=== PATIENT | female | born 1965 | race American Indian/Alaskan Native ===

== ENCOUNTER 2017-03-16 17:32 | Emergency (ER) | payer MEDICAID, OTHER ==
[2017-03-16 17:47] VITALS: BP 125/63; PULSE 93; RESP 18; TEMP 97.6; O2SAT 99
[2017-03-16] MEDS ORDERED: Clindamycin 600 MG in Sodium Chloride 0.9% 100 ML IVPB ONE (17:57)
--- NOTE | 2017-03-16 18:50 | ED PDOC ---
Lower Extremity Pain/Injury Time Seen by Provider: 03/16/17 17:51 Chief Complaint (Nursing): Lower Extremity Problem/Injury Chief Complaint (Provider): Left knee injury History Per: Patient History/Exam Limitations: no limitations Onset/Duration Of Symptoms: Days (5) Current Symptoms Are (Timing): Still Present Severity: Moderate Additional Complaint(s): Juliane Rothman is a 51 y/o female presenting to the ER on 03/16/2017 with an injury to her left knee. Patient reports she tripped and fell five days ago and sustained an abrasion to her knee. Patient states the knee has become swollen and has an associated beige drainage. She denies any fever but continues to experience pain and swelling, prompting her to seek medical evaluation. Patient is also complaining of right hip pain. Past Medical History Reviewed: Historical Data, Nursing Documentation, Vital Signs Vital Signs: Last Vital Signs Temp 97.6 F 03/16/17 17:41 Pulse 93 H 03/16/17 17:41 Resp 18 03/16/17 17:41 BP 125/63 03/16/17 17:41 Pulse Ox 99 03/16/17 17:41 - Medical History PMH: HTN - Surgical History Surgical History: No Surg Hx - Family History Family History: States: Unknown Family Hx - Social History Current smoker - smoking cessation education provided: No Alcohol: None Drugs: Denies - Home Medications Home Medications: Ambulatory Orders Medication Instructions Recorded Clindamycin [Cleocin] 300 mg PO TID #30 cap 03/16/17 Naproxen [Naprosyn] 500 mg PO Q12H #20 tab 03/16/17 - Allergies Allergies/Adverse Reactions: Allergies Allergy/AdvReac Type Severity Reaction Status Date / Time No Known Allergies Allergy Verified 03/16/17 17:41 Review of Systems ROS Statement: Except As Marked, All Systems Reviewed And Found Negative Constitutional: Negative for: Fever Musculoskeletal: Positive for: Leg Pain ((+) left knee ), Other ((+) right hip ) Physical Exam - Reviewed Nursing Documentation Reviewed: Yes Vital Signs Reviewed: Yes - Physical Exam Appears: Positive for: Non-toxic, No Acute Distress Head Exam: Positive for: ATRAUMATIC, NORMOCEPHALIC Skin: Positive for: Normal Color. Negative for: Rash Eye Exam: Positive for: Normal appearance, EOMI, PERRL Neck: Positive for: Normal, Painless ROM, Supple Cardiovascular/Chest: Positive for: Regular Rate, Rhythm. Negative for: Murmur Respiratory: Positive for: Normal Breath Sounds. Negative for: Respiratory Distress Extremity: Positive for: Normal ROM (full ROM of right hip and left knee ), Tenderness, Swelling, Other ((+) left knee- 2 cm ulcer with beige discharge and surrounding swelling and tenderness; (+) right hip tenderness w/ no deformity). Negative for: Deformity Neurologic/Psych: Positive for: Alert, Oriented. Negative for: Motor/Sensory Deficits - Laboratory Results Result Diagrams: 03/16/17 18:40 03/16/17 18:40 - ECG O2 Sat by Pulse Oximetry: 99 Medical Decision Making Medical Decision Makin:51 Initial Impression- 51 y/o female with ulcer to left knee and right hip pain Initial Plan- * VBG Shock Panel * CMP * Urine Dip * CBC w/ differential * XR Left Knee * Clindamycin IVPB * Toradol 30 mg IVP * XR Right Hip * US Duplex lower extremity * Re-eval Documented by Imani Rivero, acting as a scribe for Chris Kwong MD. All medical record entries made by the Scribe were at my direction and personally dictated by me. I have reviewed the chart and agree that the record accurately reflects my personal performance of the history, physical exam, medical decision making, and the department course for this patient. I have also personally directed, reviewed, and agree with the discharge instructions and disposition. Disposition - Clinical Impression Clinical Impression: Cellulitis - Patient ED Disposition Is Patient to be Admitted: No Counseled Patient/Family Regarding: Studies Performed, Diagnosis, Need For Followup, Rx Given - Disposition Referrals: Jailene Bolden MD [Staff Provider] - Disposition: Routine/Home Disposition Time: 21:43 Condition: FAIR Prescriptions: Clindamycin [Cleocin] 300 mg PO TID #30 cap Naproxen [Naprosyn] 500 mg PO Q12H #20 tab Instructions: Cellulitis (ED)
[2017-03-16 18:58] LABS: BASO % 0.6 % (0.0-2.0); EOS # 0.3 K/uL (0.0-0.7); EOS % 3.7 % (0.0-4.0); HEMATOCRIT 43.4 % (34.0-47.0); LYMPH % 25.4 % (20.0-40.0); MEAN CELL VOLUME 92.1 fl (81.0-99.0); MEAN CORPUSCULAR HEMOGLOBIN 31.1 pg (27.0-31.0); MEAN CORPUSCULAR HGB CONC 33.7 g/dL (33.0-37.0); MEAN PLATELET VOLUME 9.4 fl (7.2-11.7); MONO # 0.5 K/uL (0.0-0.8); MONO % 6.5 % (0.0-10.0); NEUT # 5.1 K/uL (1.8-7.0); NEUT % 63.8 % (50.0-75.0); NRBC % 0.1 % (0.0-0.0); RED CELL DISTRIBUTION WIDTH 13.3 % (11.5-14.5)
[2017-03-16 19:06] LABS: VENOUS BLOOD GAS BASE EXCESS 0.7 mmol/L (0.0-2.0); VENOUS BLOOD GAS PCO2 40 mmHg (40-60); VENOUS BLOOD PH 7.41 (7.32-7.43)
[2017-03-16 19:11] LABS: ALKALINE PHOSPHATASE 114 U/L (38-126); ALT/SGPT 37 U/L (9-52); AST/SGOT 34 U/L (14-36); BILIRUBIN,TOTAL 0.7 mg/dl (0.2-1.3); BLOOD UREA NITROGEN 21 mg/dl (7-17); CALCIUM 10.1 mg/dL (8.4-10.2); CARBON DIOXIDE 24 mmol/L (22-30); CHLORIDE 107 mmol/L (98-107); GFR AFRICAN-AMERICAN > 60; GLUCOSE,RANDOM 89 mg/dL (65-105); SODIUM 140 mmol/l (132-148); TOTAL PROTEIN 9.9 G/DL (6.3-8.2)
[2017-03-16 19:12] LABS: POTASSIUM 4.3 MMOL/L (3.6-5.0)
--- NOTE | 2017-03-16 21:14 | US ---
EXAM: US Duplex Left Lower Extremity Veins CLINICAL HISTORY: 51 years old, female; Signs and symptoms; Swelling of limb; Lower extremity, left TECHNIQUE: Real-time ultrasound scan of the veins of the left lower extremity with color Doppler flow, spectral waveform analysis and compression. EXAM DATE/TIME: 03/16/2017 6:27 PM COMPARISON: There are no prior studies for comparison. FINDINGS: Deep veins: Common femoral, superficial femoral, popliteal and posterior tibial veins were evaluated. All veins examined are compressible. There are no intraluminal filling defects. There is expected blood flow on Doppler imaging. There is change in waveform with augmentation. Impression: No deep venous thrombosis in the visualized vascular segments of the left lower extremity
[2017-03-16] MEDS ORDERED: TDAP Vaccine 0.5 mL Syr IM ONE (21:47)
--- NOTE | 2017-03-17 12:08 | RAD ---
PROCEDURE: Left Knee Radiographs. HISTORY: COMPARISON: None available FINDINGS: BONES: No acute displaced fracture. JOINTS: No dislocation. JOINT EFFUSION: No significant joint effusion. OTHER FINDINGS: None. IMPRESSION: No acute displaced fracture, dislocation, or significant joint effusion identified. If symptoms persist, or if there is continued clinical concern, x-ray follow-up in 7-10 days should be considered.
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
== END 2017-03-16 22:48 | disposition home or self-care (01) ==
LOC: H.ER 17:32
DX: L03.116 Cellulitis of left lower limb (principal); I10 Essential (primary) hypertension

== ENCOUNTER 2017-12-19 12:01 | Inpatient (IN) | payer MEDICAID, OTHER ==
[2017-12-19] MEDS ORDERED: Sodium Chloride 0.9% 1,000 ML IV STA (12:46)
--- NOTE | 2017-12-19 12:49 | ED PDOC ---
HPI: Back Time Seen by Provider: 12/19/17 12:46 Chief Complaint (Nursing): Back Pain Chief Complaint (Provider): left side flank pain History Per: Patient (52 y/o female here with intermittent waxing and waning left side flank pain x 3 days. Denies any associated with urinary discomfort/ vomiting/fevers/chills. Has h/o bulging discs but unsure if related to discomfort. Notes pain worse with movement.) Past Medical History Reviewed: Historical Data, Nursing Documentation, Vital Signs Vital Signs: Last Vital Signs Temp 98.4 F 12/19/17 12:32 Pulse 115 H 12/19/17 12:32 Resp 20 12/19/17 12:32 BP 124/84 12/19/17 12:32 Pulse Ox 100 12/19/17 12:32 - Medical History PMH: HTN - Family History Family History: States: Unknown Family Hx - Social History Current smoker - smoking cessation education provided: Yes (cigarettes) Alcohol: None Drugs: Denies - Home Medications Home Medications: Ambulatory Orders Medication Instructions Recorded Clindamycin [Cleocin] 300 mg PO TID #30 cap 03/16/17 Naproxen [Naprosyn] 500 mg PO Q12H #20 tab 03/16/17 - Allergies Allergies/Adverse Reactions: Allergies Allergy/AdvReac Type Severity Reaction Status Date / Time bactrim AdvReac Intermediate severe Uncoded 12/19/17 16:10 diarrhea Review of Systems ROS Statement: Except As Marked, All Systems Reviewed And Found Negative Gastrointestinal: Positive for: Abdominal Pain Musculoskeletal: Positive for: Back Pain Physical Exam - Reviewed Nursing Documentation Reviewed: Yes Vital Signs Reviewed: Yes - Physical Exam Appears: Positive for: Well, Non-toxic, No Acute Distress Head Exam: Positive for: ATRAUMATIC, NORMAL INSPECTION, NORMOCEPHALIC Skin: Positive for: Normal Color, Warm, DRY Eye Exam: Positive for: EOMI, Normal appearance, PERRL ENT: Positive for: Normal ENT Inspection Neck: Positive for: Normal, Painless ROM Cardiovascular/Chest: Positive for: Regular Rate, Rhythm Respiratory: Positive for: CNT, Normal Breath Sounds Gastrointestinal/Abdominal: Positive for: Normal Exam, Bowel Sounds, Soft, Tenderness (left upper quadrant/left flank pain) Back: Positive for: Normal Inspection Extremity: Positive for: Normal ROM Neurologic/Psych: Positive for: Alert, Oriented - Laboratory Results Result Diagrams: 12/20/17 06:00 12/20/17 06:00 - ECG O2 Sat by Pulse Oximetry: 100 - Progress ED Course And Treament: Dr. luo in ED. REquests dilaudid for pain control Patient has h/o HIV with CD4 count 34 Hep C Renal Stones s/p nephrolithotomy 2012 Fibromyalgia Is currently on Dyazide, nifedipinek,genvoya, naprosen, cymbalta, alprazolam, vit d toradol 15mg i vx 1 dose dilaudid 1 mg i vx 1 dose NS 1 liter wide open Iv access infiltrated. EJ placed by DR. Luo to assist with hydration. ct abd/pelvis: IMPRESSION: No urolithiasis or evidence of recently passed genitourinary calculus. wbc mildly elevated. As patient has intractable back pain and possibility of pyelonephritis, Will be admitted by dr. Luo for management and treatment of possible pyelonephritis. Disposition - Clinical Impression Clinical Impression: Back pain - Patient ED Disposition Is Patient to be Admitted: Yes - Disposition Disposition Time: 15:39 Condition: FAIR - Pt Status Changed To: Hospital Disposition Of: Inpatient - Admit Certification Admit to Inpatient:: After my assessment, the patient will require hospitalization for at least two midnights. This is because of the severity of symptoms shown, intensity of services needed, and/or the medical risk in this patient being treated as an outpatient.
[2017-12-19 13:09] LABS: BASO # 0.1 K/uL (0.0-0.2); BASO % 0.7 % (0.0-2.0); EOS # 0.1 K/uL (0.0-0.7); EOS % 0.9 % (0.0-4.0); HEMOGLOBIN 16.5 g/dL (12.0-16.0); LYMPH # 2.2 K/uL (1.0-4.3); LYMPH % 17.4 % (20.0-40.0); MEAN CELL VOLUME 94.5 fl (81.0-99.0); MEAN CORPUSCULAR HEMOGLOBIN 32.8 pg (27.0-31.0); MEAN CORPUSCULAR HGB CONC 34.7 g/dL (33.0-37.0); MEAN PLATELET VOLUME 9.6 fl (7.2-11.7); MONO # 0.9 K/uL (0.0-0.8); MONO % 6.7 % (0.0-10.0); NEUT # 9.4 K/uL (1.8-7.0); NEUT % 74.3 % (50.0-75.0); NRBC % 0.2 % (0.0-0.0); RBC 5.02 Mil/uL (3.80-5.20); RED CELL DISTRIBUTION WIDTH 13.2 % (11.5-14.5); WHITE BLOOD COUNT 12.6 K/uL (4.8-10.8)
[2017-12-19 13:30] LABS: ALBUMIN 5.1 g/dL (3.5-5.0); CALCIUM 10.6 mg/dL (8.4-10.2)
--- NOTE | 2017-12-19 15:00 | CT ---
PROCEDURE: CT Abdomen and Pelvis without intravenous contrast HISTORY: r/o kidney stone left flank pain COMPARISON: None. TECHNIQUE: Contiguous images were obtained from the domes of the diaphragms to the upper thighs without the administration of intravenous contrast. Oral contrast was not administered. Radiation dose: Total exam DLP = 884.5 mGy-cm. This CT exam was performed using one or more of the following dose reduction techniques: Automated exposure control, adjustment of the mA and/or kV according to patient size, and/or use of iterative reconstruction technique. FINDINGS: LOWER THORAX: Unremarkable. LIVER: Unremarkable. No gross lesion or ductal dilatation. GALLBLADDER AND BILE DUCTS: Prior cholecystectomy. PANCREAS: Unremarkable. No gross lesion or ductal dilatation. SPLEEN: Unremarkable. ADRENALS: Unremarkable. No mass. KIDNEYS AND URETERS: Unremarkable. No hydronephrosis. No solid mass. VASCULATURE: Unremarkable. No aortic aneurysm. BOWEL: Unremarkable. No obstruction. No gross mural thickening. APPENDIX: Prior appendectomy. PERITONEUM: Unremarkable. No free fluid. No free air. LYMPH NODES: Unremarkable. No enlarged lymph nodes. BLADDER: Unremarkable. REPRODUCTIVE: Unremarkable. BONES: No acute fracture. OTHER FINDINGS: None. IMPRESSION: No urolithiasis or evidence of recently passed genitourinary calculus.
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
[2017-12-19 17:24] LABS: SQUAMOUS EPITHIAL 21 /hpf (0-5); URINE AMORPHOUS SEDIMENT RARE /ul (<OCC); URINE BACTERIA MANY (<OCC); URINE BILIRUBIN NEGATIVE (NEGATIVE); URINE BLOOD NEGATIVE (NEGATIVE); URINE CLARITY CLOUDY (Clear); URINE COLOR YELLOW (YELLOW); URINE GLUCOSE (UA) NEG (Normal); URINE LEUKOCYTE ESTERASE SMALL Leu/uL (Negative); URINE PROTEIN 30 mg/dL (NEGATIVE); URINE UROBILINOGEN 0.2-1.0 mg/dL (0.2-1.0)
[2017-12-19] MEDS: Sodium Chloride 0.9% 1,000 ML IV SCH (17:26)
[2017-12-19] MEDS: Pantoprazole 40 mg EC Tab PO SCH (17:31)
[2017-12-19] MEDS ORDERED: Pantoprazole 40 mg EC Tab PO ONE (17:31)
[2017-12-20] MEDS: Sodium Chloride 0.9% 1,000 ML IV SCH ×4 (00:04→17:24)
--- NOTE | 2017-12-20 00:07 | CARD ---
APPROVED REPORT EKG Measurement Heart [id number] <Conclusion> Normal sinus rhythm Possible Left atrial enlargement Borderline ECG
[2017-12-20 07:56] LABS: BLOOD UREA NITROGEN 13 mg/dl (7-17); CALCIUM 9.5 mg/dL (8.4-10.2); GFR AFRICAN-AMERICAN > 60; GFR NON-AFRICAN AMERICAN > 60
[2017-12-20 08:03] LABS: HEMOGLOBIN 14.1 g/dL (12.0-16.0); MEAN CELL VOLUME 95.9 fl (81.0-99.0); MEAN CORPUSCULAR HEMOGLOBIN 32.9 pg (27.0-31.0); MEAN CORPUSCULAR HGB CONC 34.3 g/dL (33.0-37.0); RBC 4.3 Mil/uL (3.80-5.20); RED CELL DISTRIBUTION WIDTH 13.7 % (11.5-14.5); WHITE BLOOD COUNT 8.2 K/uL (4.8-10.8)
[2017-12-20] MEDS: NIFEdipine 60 mg ER Tab PO SCH (09:11)
[2017-12-20] MEDS: hydroCHLOROthiazide-Triamterene 25 mg-37.5 mg Cap UD PO SCH (09:11)
[2017-12-20] MEDS: Pantoprazole 40 mg EC Tab PO SCH (09:12)
--- NOTE | 2017-12-20 09:51 | RAD ---
HISTORY: Hx of positive PPD COMPARISON: Chest radiograph dated 05/04/2014 TECHNIQUE: Chest PA and lateral FINDINGS: LUNGS: No active pulmonary disease. PLEURA: No significant pleural effusion identified. No pneumothorax apparent. CARDIOVASCULAR: Normal. OSSEOUS STRUCTURES: No significant abnormalities. VISUALIZED UPPER ABDOMEN: Right upper quadrant surgical clips redemonstrated. OTHER FINDINGS: None. IMPRESSION: No active disease.
[2017-12-20] MEDS ORDERED: HYDROmorphone 1 mg/ml ISec IVP PRN (11:45)
--- NOTE | 2017-12-20 11:56 | CP.PCM.PN ---
Subjective - Date & Time of Evaluation Date of Evaluation: 12/20/17 Time of Evaluation: 11:54 - Subjective Subjective: Patient is much improved after 2 doses of ertapenem. She still has little appetite, but her flank pain is much less. Urinalysis showed 5 rbc, 12 wbc, and bacteria. Awaiting culture results for urine. Some vaginal discharge, which has been present for weeks - genital culture done. Otherwise no new complaints. Objective - Vital Signs/Intake and Output Vital Signs (last 24 hours): Temp Pulse Resp BP Pulse Ox 97.9 F 87 20 119/73 100 12/20/17 08:10 12/20/17 08:10 12/20/17 08:10 12/20/17 09:11 12/20/17 10:34 - Medications Medications: Current Medications Alprazolam (Xanax) 0.5 mg PO Q8 PRN PRN Reason: Anxiety Aspirin (Ecotrin) 81 mg PO DAILY [facility] Duloxetine HCl (Cymbalta) 60 mg PO DAILY [facility] Last Admin: 12/20/17 09:11 Dose: 60 mg Home Med (Patient's Own Medication) 1 unit PO DAILY [facility] Hydromorphone HCl (Dilaudid) 1 mg IVP Q4 PRN PRN Reason: Pain, moderate (4-7) Ertapenem 1 gm/ Sodium (Chloride) 100 mls @ 100 mls/hr IVPB DAILY [facility] PRN Reason: Protocol Last Admin: 12/20/17 10:10 Dose: 100 mls/hr Sodium Chloride (Sodium Chloride 0.9%) 1,000 mls @ 150 mls/hr IV .Q6H40M [facility] Stop: 12/20/17 16:38 Last Admin: 12/20/17 09:24 Dose: 150 mls/hr Nicotine (Nicoderm Cq) 1 patch TD DAILY [facility] Nifedipine (Procardia Xl) 60 mg PO DAILY [facility] Last Admin: 12/20/17 09:11 Dose: 60 mg Pantoprazole Sodium (Protonix Ec Tab) 40 mg PO DAILY [facility] Last Admin: 12/20/17 09:12 Dose: 40 mg Triamterene/HCTZ (Dyazide 25 Mg-37.5 Mg) 1 cap PO DAILY [facility] Last Admin: 12/20/17 09:11 Dose: 1 cap - Labs Labs: 12/20/17 06:00 12/20/17 06:00 - Constitutional Appears: No Acute Distress - Head Exam Head Exam: NORMAL INSPECTION - Eye Exam Eye Exam: Normal appearance - ENT Exam ENT Exam: Mucous Membranes Moist - Respiratory Exam Respiratory Exam: Clear to Ausculation Bilateral, NORMAL BREATHING PATTERN - Cardiovascular Exam Cardiovascular Exam: REGULAR RHYTHM, +S1, +S2 - GI/Abdominal Exam GI & Abdominal Exam: Soft - Exam External exam: NORMAL EXTERNAL EXAM Additional comments: Some clear vaginal discharge. - Extremities Exam Extremities Exam: Normal Inspection - Back Exam Back Exam: CVA tenderness (L), muscle spasm - Psychiatric Exam Psychiatric exam: Normal Affect, Normal Mood Assessment and Plan (1) Pyelonephritis Assessment & Plan: Continue ertapenem - await culture results. Status: Acute (2) AIDS Assessment & Plan: Continue Genvoya Status: Acute (3) Fibromyalgia Status: Acute (4) Vitamin D deficiency Status: Acute (5) Severe vaginal dysplasia, histologically confirmed Assessment & Plan: Culture (genital) done. Status: Acute (6) GERD (gastroesophageal reflux disease) Status: Acute - Assessment and Plan (Free Text) Assessment: Decrease Dilaudid to 1 mg iv qrh prn mod. pain. Decrease alprazolam to 0.5mg q8h prn only. Resume ASA.
[2017-12-20] MEDS: GENVOYA PO SCH (17:12)
[2017-12-20] MEDS ORDERED: Sodium Chloride 0.9% 1,000 ML IV SCH (21:45)
[2017-12-20] MEDS: Morphine 4 MG/ML VIAL IVP PRN (23:00)
[2017-12-21] MEDS: Morphine 4 MG/ML VIAL IVP PRN (07:57)
[2017-12-21] MEDS: NIFEdipine 60 mg ER Tab PO SCH (10:01)
[2017-12-21] MEDS: hydroCHLOROthiazide-Triamterene 25 mg-37.5 mg Cap UD PO SCH (10:01)
[2017-12-21] MEDS: Pantoprazole 40 mg EC Tab PO SCH (10:01)
[2017-12-21] MEDS: GENVOYA PO SCH (10:03)
--- NOTE | 2017-12-21 13:35 | CP.PCM.PN ---
Subjective - Date & Time of Evaluation Date of Evaluation: 12/21/17 Time of Evaluation: 13:31 - Subjective Subjective: Less left flank pain, but still needs opioids. Eating better. CT (non-contrast) reviewed with radiologist. There is some irregularity of the left kidney (site pf previous nephrolithotomy). This could represent an infact or tumor. CT of abdomen and pelvis W/O & W contrast recommended and so ordered. Urine culture postive for gm positive cocci, awaiting Identification and sensitivity. Vaginal culture pending. Dr. Black approved continued iv ertapenem. No BM x 2+ days. Lactulose ordered. Otherwise stable. Objective - Vital Signs/Intake and Output Vital Signs (last 24 hours): Temp Pulse Resp BP Pulse Ox 98.0 F 89 19 106/89 98 12/21/17 09:00 12/21/17 10:01 12/21/17 09:00 12/21/17 10:01 12/21/17 09:00 - Medications Medications: Current Medications Alprazolam (Xanax) 0.5 mg PO Q8 PRN PRN Reason: Anxiety Last Admin: 12/21/17 01:34 Dose: 0.5 mg Aspirin (Ecotrin) 81 mg PO DAILY [facility] Last Admin: 12/21/17 10:00 Dose: 81 mg Duloxetine HCl (Cymbalta) 60 mg PO DAILY [facility] Last Admin: 12/21/17 10:00 Dose: 60 mg Home Med (Patient's Own Medication) 1 unit PO DAILY [facility] Last Admin: 12/21/17 10:03 Dose: 1 unit Hydromorphone HCl (Dilaudid) 1 mg IVP Q4 PRN PRN Reason: Pain, moderate (4-7) Hydromorphone HCl (Dilaudid) 2 mg PO Q4 PRN PRN Reason: Pain, moderate (4-7) Last Admin: 12/21/17 10:16 Dose: 2 mg Ertapenem 1 gm/ Sodium (Chloride) 100 mls @ 100 mls/hr IVPB DAILY [facility] PRN Reason: Protocol Last Admin: 12/21/17 10:09 Dose: 100 mls/hr Sodium Chloride (Sodium Chloride 0.9%) 1,000 mls @ 50 mls/hr IV .Q20H [facility] Stop: 12/21/17 21:33 Last Admin: 12/21/17 08:05 Dose: 50 mls/hr Lactulose (Enulose) 20 gm PO DAILY PRN PRN Reason: Constipation Morphine Sulfate (Morphine) 2 mg IVP Q2 PRN PRN Reason: Pain, severe (8-10) Last Admin: 12/21/17 07:57 Dose: 2 mg Nicotine (Nicoderm Cq) 1 patch TD DAILY [facility] Last Admin: 12/21/17 10:01 Dose: 1 patch Nifedipine (Procardia Xl) 60 mg PO DAILY [facility] Last Admin: 12/21/17 10:01 Dose: 60 mg Pantoprazole Sodium (Protonix Ec Tab) 40 mg PO DAILY [facility] Last Admin: 12/21/17 10:01 Dose: 40 mg Triamterene/HCTZ (Dyazide 25 Mg-37.5 Mg) 1 cap PO DAILY [facility] Last Admin: 12/21/17 10:01 Dose: 1 cap - Labs Labs: 12/20/17 06:00 12/20/17 06:00 - Constitutional Appears: No Acute Distress - Head Exam Head Exam: NORMAL INSPECTION - Eye Exam Eye Exam: Normal appearance - ENT Exam ENT Exam: Mucous Membranes Moist - Neck Exam Neck Exam: Normal Inspection - Respiratory Exam Respiratory Exam: Clear to Ausculation Bilateral, NORMAL BREATHING PATTERN - Cardiovascular Exam Cardiovascular Exam: REGULAR RHYTHM, +S1, +S2 - GI/Abdominal Exam GI & Abdominal Exam: Soft Additional comments: LUQ tenderness. - Extremities Exam Extremities Exam: Normal Inspection - Back Exam Back Exam: CVA tenderness (L), muscle spasm Assessment and Plan (1) Pyelonephritis Assessment & Plan: Continue ertapenem IV> CT of abd and pelvis (w and w/o contrast) to rule out other renal abnormalities. Status: Acute (2) AIDS Status: Acute (3) Fibromyalgia Status: Acute (4) Vitamin D deficiency Status: Acute (5) Severe vaginal dysplasia, histologically confirmed Status: Acute (6) GERD (gastroesophageal reflux disease) Status: Acute
[2017-12-21] MEDS ORDERED: Iohexol 240 (50 ml) PO ONE (13:37)
[2017-12-21] MEDS ORDERED: Iohexol 300 100 ML IJ ONE (17:37)
--- NOTE | 2017-12-21 18:32 | CT ---
PROCEDURE: CT Abdomen and Pelvis with and without intravenous contrast HISTORY: abn L kidney ?pyelonephritis,infarct.vag dysplasia COMPARISON: 05/04/2014 CT abdomen pelvis. 12/19/2017 CT abdomen pelvis. TECHNIQUE: Axial images of the abdomen were obtained in the pre contrast, portal venous and delayed phases of enhancement. Coronal and sagittal reformats were generated. Contrast dose: 95 cc Omnipaque 300. Radiation dose: Total exam DLP = mGy-cm. This CT exam was performed using one or more of the following dose reduction techniques: Automated exposure control, adjustment of the mA and/or kV according to patient size, and/or use of iterative reconstruction technique. FINDINGS: LOWER THORAX: Unremarkable. LIVER: Unremarkable. No gross lesion or ductal dilatation. GALLBLADDER AND BILE DUCTS: Status post cholecystectomy. No abnormality is seen in the gallbladder fossa. PANCREAS: Unremarkable. No gross lesion or ductal dilatation. SPLEEN: Unremarkable. ADRENALS: Unremarkable. No mass. KIDNEYS AND URETERS: Unremarkable. No hydronephrosis. No solid mass. VASCULATURE: Unremarkable. No aortic aneurysm. BOWEL: Constipation without fecal impaction or obstruction. APPENDIX: Prior appendectomy. Surgical clips at the base of cecum. PERITONEUM: Unremarkable. No free fluid. No free air. LYMPH NODES: Unremarkable. No enlarged lymph nodes. BLADDER: Unremarkable. REPRODUCTIVE: Unremarkable. BONES: No acute fracture. OTHER FINDINGS: None. IMPRESSION: No acute findings related to/accounting for the clinical presentation. No significant interval change compared to the prior examination(s). Specifically, no evidence indicate pyelonephritis, renal vein thrombosis, calculus disease or obstructive uropathy.
[2017-12-22] MEDS: hydroCHLOROthiazide-Triamterene 25 mg-37.5 mg Cap UD PO SCH (08:35)
[2017-12-22] MEDS: GENVOYA PO SCH (08:37)
[2017-12-22] MEDS: Pantoprazole 40 mg EC Tab PO SCH (08:38)
--- NOTE | 2017-12-22 13:27 | CP.PCM.PN ---
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 Hx of renal stones. Urinalysis showed many bacteria. CT failed to demonstrate evidence of a current or recent stone. Urine culture grew only a few gm pos - probably contaminant - being replated. Vaginal culture pending She was started on iv ertapenem for presumed UTI and pain has improved but not resolved completely. Pt also has a hx of spinal disc disease and was recently started on Cymbalta for pain management. This helped the pain for a while, but now there is concern about possible pancreatitis due to Cymbalta. Amylase, lipase blood tests are pending. Will taper off Cymbalta. Today there is still sl. left cva tenderness and LUQ/EPIGASTRIC TENDERNESS. Importantly when she walked about 60 feet, she developed more severe lumbar pain radiating to the anterior legs. She had to stop due to the pain. She also reports a tremor of the RUE,HIV Patient has HIV disease with recent CD4 of 275 and undetectable HIV viral load. She was started on Genvoya a few months ago, but this has not been reported to cause renal or GI problems. This is baffling. I am reminded of an old professor who said "What will trip you up are the common diseases that manifest in uncommon ways." So, I have requested that Dr. Marylu Donnelly see the member in neurology consultation, which she will do later today. Meanwhile, she recommended a L-S MRI. Because of the possibility of osteomyelitis or something unusual, I have ordered the MRI to be done without and with IV Gadolinium. Otherwise, no BM, and will order [place] at . Objective - Vital Signs/Intake and Output Vital Signs (last 24 hours): Temp Pulse Resp BP Pulse Ox 97.7 F 85 20 105/68 100 12/22/17 08:19 12/22/17 08:19 12/22/17 08:19 12/22/17 08:19 12/22/17 08:19 - Medications Medications: Current Medications Alprazolam (Xanax) 0.5 mg PO Q8 PRN PRN Reason: Anxiety Last Admin: 12/21/17 23:01 Dose: 0.5 mg Aspirin (Ecotrin) 81 mg PO DAILY [facility] Last Admin: 12/22/17 08:35 Dose: 81 mg Duloxetine HCl (Cymbalta) 30 mg PO DAILY [facility] Home Med (Patient's Own Medication) 1 unit PO DAILY [facility] Last Admin: 12/22/17 08:37 Dose: 1 unit Hydromorphone HCl (Dilaudid) 1 mg IVP Q4 PRN PRN Reason: Pain, moderate (4-7) Hydromorphone HCl (Dilaudid) 2 mg PO Q4 PRN PRN Reason: Pain, moderate (4-7) Last Admin: 12/21/17 21:07 Dose: 2 mg Ertapenem 1 gm/ Sodium (Chloride) 100 mls @ 100 mls/hr IVPB DAILY [facility] PRN Reason: Protocol Last Admin: 12/22/17 08:35 Dose: 100 mls/hr Lactulose (Enulose) 20 gm PO DAILY PRN PRN Reason: Constipation Morphine Sulfate (Morphine) 2 mg IVP Q2 PRN PRN Reason: Pain, severe (8-10) Last Admin: 12/21/17 07:57 Dose: 2 mg Nicotine (Nicoderm Cq) 1 patch TD DAILY [facility] Last Admin: 12/22/17 08:36 Dose: 1 patch Nifedipine (Procardia Xl) 60 mg PO DAILY [facility] Last Admin: 12/21/17 10:01 Dose: 60 mg Pantoprazole Sodium (Protonix Ec Tab) 40 mg PO DAILY [facility] Last Admin: 12/22/17 08:38 Dose: 40 mg Triamterene/HCTZ (Dyazide 25 Mg-37.5 Mg) 1 cap PO DAILY [facility] Last Admin: 12/22/17 08:35 Dose: 1 cap - Labs Labs: 12/20/17 06:00 12/20/17 06:00 - Constitutional Appears: No Acute Distress - Head Exam Head Exam: NORMAL INSPECTION - Eye Exam Eye Exam: Normal appearance - ENT Exam ENT Exam: Mucous Membranes Moist, Normal Oropharynx - Neck Exam Neck Exam: Normal Inspection - Respiratory Exam Respiratory Exam: Clear to Ausculation Bilateral, NORMAL BREATHING PATTERN - Cardiovascular Exam Cardiovascular Exam: REGULAR RHYTHM, +S1, +S2 - GI/Abdominal Exam GI & Abdominal Exam: Soft Additional comments: LUQ and epigastric tenderness. - Extremities Exam Extremities Exam: Normal Inspection - Back Exam Back Exam: CVA tenderness (L), muscle spasm Additional comments: SLR negative. Able to bend forward without pain. - Neurological Exam Neurological Exam: Abnormal Gait, Alert, CN II-XII Intact, Oriented x3 Additional comments: Sl tremor right upper extremity. DTR's intact. Strength intact. Coordination intact. No sensory deficits. - Psychiatric Exam Psychiatric exam: Normal Affect, Normal Mood Assessment and Plan (1) Back pain Assessment & Plan: See History above. Since pain radiates to legs only on ambulation, it is not clear what is causing this. RUE tremor is also a concern. Dr. Marylu Donnelly will see the patient in neurology consultation. Patient is go have MRI of lumbar spine w/o and w/ IV gadolinum to rule out osteomyelitis or other abnormality. Status: Acute (2) Pyelonephritis Assessment & Plan: Awaiting replating of urine for culture. Await vaginal culture result. Continue iv ertapenem. Status: Acute (3) AIDS Assessment & Plan: stable Status: Acute (4) Fibromyalgia Assessment & Plan: Will start to taper off Cymbalta - down to 30mg/day from 60mg/day because of possible pancreatitis. Status: Acute (5) Vitamin D deficiency Assessment & Plan: While on Genvoya she needs to continue Vit D 50,000 units/month. Will give a dose tomorrow. Status: Acute (6) Severe vaginal dysplasia, histologically confirmed Status: Acute (7) GERD (gastroesophageal reflux disease) Assessment & Plan: Continue protonix. Status: Acute
[2017-12-22 14:11] LABS: AMYLASE 137 U/L (30-110); LIPASE 117 U/L (23-300)
[2017-12-22] MEDS ORDERED: Gadodiamide 287 MG/ML VIAL (15ML) IV ONE (15:17)
[2017-12-22] MEDS: NIFEdipine 60 mg ER Tab PO SCH (17:05)
[2017-12-22] MEDS ORDERED: Docusate-Senna 50 mg-8.6 mg Tab PO ONE (22:00)
--- NOTE | 2017-12-23 09:50 | CP.PCM.PN ---
Subjective - Date & Time of Evaluation Date of Evaluation: 12/23/17 Time of Evaluation: 09:39 - Subjective Subjective: Patient feels better, less left lumbar pain. She took a shower this morning. Still no bowel movement, but that is likely due to opioids. She was given Lactulose and S[place]-S yesterday - will see if that helps. Cymbalta has been decreased to 30mg daily. MRI of lumbar spine was completed yesterday, and we are awaiting reading by radiologist. Also awaiting neurology consultation by Dr. Donnelly. Amylase of 137 (Less than 200 is fine for person with HIV disease) and normal lipase rules out pancretitis. We are awaiting the repeat (replated) urine culture and the vaginal culture. Patient continues on IV ertapenem. ESR = 42 MY WORKING DIAGNOSIS REMAINS LEFT PYELONEPHRITIS WITH GOOD RESPONSE TO DAY #5 of IV ERTAPENEM. I BELIEVE THERE IS A SECONDARY PROBLEM RELATED TO PREVIOUS SPINAL DISC (?) DISEASE which may be the cause of the L lumbar pain radiating to legs. Will encourage patient to rely on acetaminophen for moderate to mild pain and to avoid opioids if possible. PHYSICAL EXAM - same as yesterday except there is less left CVA tenderness. Objective - Vital Signs/Intake and Output Vital Signs (last 24 hours): Temp Pulse Resp BP Pulse Ox 98.3 F 90 20 108/72 95 12/23/17 08:14 12/23/17 08:14 12/23/17 08:14 12/23/17 08:14 12/23/17 08:14 - Medications Medications: Current Medications Alprazolam (Xanax) 0.5 mg PO Q8 PRN PRN Reason: Anxiety Last Admin: 12/21/17 23:01 Dose: 0.5 mg Aspirin (Ecotrin) 81 mg PO DAILY [facility] Last Admin: 12/22/17 08:35 Dose: 81 mg Duloxetine HCl (Cymbalta) 30 mg PO DAILY [facility] Home Med (Patient's Own Medication) 1 unit PO DAILY [facility] Last Admin: 12/22/17 08:37 Dose: 1 unit Hydromorphone HCl (Dilaudid) 1 mg IVP Q4 PRN PRN Reason: Pain, moderate (4-7) Hydromorphone HCl (Dilaudid) 2 mg PO Q4 PRN PRN Reason: Pain, moderate (4-7) Last Admin: 12/22/17 22:00 Dose: 2 mg Ertapenem 1 gm/ Sodium (Chloride) 100 mls @ 100 mls/hr IVPB DAILY [facility] PRN Reason: Protocol Last Admin: 12/22/17 08:35 Dose: 100 mls/hr Lactulose (Enulose) 20 gm PO DAILY PRN PRN Reason: Constipation Last Admin: 12/22/17 17:07 Dose: 20 gm Morphine Sulfate (Morphine) 2 mg IVP Q2 PRN PRN Reason: Pain, severe (8-10) Last Admin: 12/21/17 07:57 Dose: 2 mg Nicotine (Nicoderm Cq) 1 patch TD DAILY [facility] Last Admin: 12/22/17 08:36 Dose: 1 patch Nifedipine (Procardia Xl) 60 mg PO DAILY [facility] Last Admin: 12/22/17 17:05 Dose: 60 mg Pantoprazole Sodium (Protonix Ec Tab) 40 mg PO DAILY [facility] Last Admin: 12/22/17 08:38 Dose: 40 mg Triamterene/HCTZ (Dyazide 25 Mg-37.5 Mg) 1 cap PO DAILY [facility] Last Admin: 12/22/17 08:35 Dose: 1 cap - Labs Labs: 12/20/17 06:00 12/20/17 06:00 Assessment and Plan (1) Back pain Assessment & Plan: SEE HPI. Status: Acute (2) Pyelonephritis Assessment & Plan: SEE HPI. Status: Acute (3) AIDS Status: Acute (4) Fibromyalgia Status: Acute (5) Vitamin D deficiency Status: Acute (6) Severe vaginal dysplasia, histologically confirmed Status: Acute (7) GERD (gastroesophageal reflux disease) Status: Acute
[2017-12-23] MEDS: hydroCHLOROthiazide-Triamterene 25 mg-37.5 mg Cap UD PO SCH (09:53)
[2017-12-23] MEDS: GENVOYA PO SCH (09:57)
[2017-12-23] MEDS: NIFEdipine 60 mg ER Tab PO SCH (09:58)
[2017-12-23] MEDS: Pantoprazole 40 mg EC Tab PO SCH (09:59)
--- NOTE | 2017-12-23 10:39 | MRI ---
PROCEDURE: MR LUMBAR SPINE WITH AND WITHOUT CONTRAST HISTORY: Pain radiating to legs COMPARISON: None available. TECHNIQUE: Multiecho multiplanar sequences were performed through the lumbar spine with and without the use of intravenous contrast. 13 cc Omniscan was injected intravenously. FINDINGS: There is normal alignment of the lumbar vertebral bodies. There is normal lumbar lordosis. There is no acute fracture, spondylolysis or spondylolisthesis. Bone marrow signal is within normal limits. The conus medullaris terminates at a normal level and the nerve roots of cauda equina are normal. The paraspinous soft tissues are normal. Imaged portion of the retroperitoneum is within normal limits. T12-L1: No disc herniation, spinal canal stenosis or neural foraminal narrowing. L1-2: No disc herniation, spinal canal stenosis or neural foraminal narrowing. L2-3: No disc herniation, spinal canal stenosis or neural foraminal narrowing. L3-4: Diffuse posterior disc bulge with superimposed left foraminal disc protrusion without central spinal canal stenosis. Mild bilateral facet arthropathy contribute to mild neural foraminal narrowing, worse on the left. L4-5: Diffuse posterior disc bulge without central spinal canal stenosis also noted is a superimposed left foraminal disc protrusion. Mild bilateral facet arthropathy contributes to mild right and moderate left neural foraminal narrowing. L5-S1: Posterior disc bulge without central spinal canal stenosis. No neural foraminal narrowing. OTHER FINDINGS: None. IMPRESSION: No acute fracture, spondylolysis or spondylolisthesis. Mild multilevel degenerative disc disease in the lower lumbar spine, worse at L4-5 with a diffuse posterior disc bulge and superimposed left foraminal disc protrusion, mild right and moderate left neural foraminal narrowing without spinal canal stenosis.
[2017-12-23] MEDS: Cholecalciferol 1,000 INTLU TAB PO SCH (11:18)
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
[2017-12-24] MEDS: hydroCHLOROthiazide-Triamterene 25 mg-37.5 mg Cap UD PO SCH (09:31)
[2017-12-24] MEDS: GENVOYA PO SCH (09:33)
[2017-12-24] MEDS: NIFEdipine 60 mg ER Tab PO SCH (09:33)
[2017-12-24] MEDS: Pantoprazole 40 mg EC Tab PO SCH (09:34)
[2017-12-24] MEDS: Cholecalciferol 1,000 INTLU TAB PO SCH (09:34)
--- NOTE | 2017-12-24 13:13 | CP.PCM.PN ---
Subjective - Date & Time of Evaluation Date of Evaluation: 12/24/17 Time of Evaluation: 13:09 - Subjective Subjective: Dr. Donnelly's consultation appreciated. Member continues to have lumbar pain with radiation to the anterior thighs. Pain is so severe that she can only walk 50- 75ft. MRI shows serious disc protrusions, keon L3-4 and L4-5. She has had physical therapy and epidurals in the past without benefit. Will refer to neurosurgeon on outpatient basis. Still no bm despite Lactulose. No obstruction seen on abdominal CT. Will order Fleets enema. This is day # 6 of iv ertepenem for pyelonephritis. Will give last dose tomorrow am and then discharge patient home. Objective - Vital Signs/Intake and Output Vital Signs (last 24 hours): Temp Pulse Resp BP Pulse Ox 98.3 F 86 20 112/76 98 12/24/17 09:11 12/24/17 09:33 12/24/17 09:11 12/24/17 09:33 12/24/17 09:11 - Medications Medications: Current Medications Acetaminophen (Tylenol 325mg Tab) 650 mg PO Q6 PRN PRN Reason: Pain, moderate (4-7) Alprazolam (Xanax) 0.5 mg PO Q8 PRN PRN Reason: Anxiety Last Admin: 12/23/17 21:48 Dose: 0.5 mg Aspirin (Ecotrin) 81 mg PO DAILY [facility] Last Admin: 12/24/17 09:31 Dose: 81 mg Cholecalciferol (Vitamin D) 2,000 intlu PO DAILY [facility] Last Admin: 12/24/17 09:34 Dose: 2,000 intlu Duloxetine HCl (Cymbalta) 30 mg PO DAILY [facility] Last Admin: 12/24/17 09:30 Dose: 30 mg Home Med (Patient's Own Medication) 1 unit PO DAILY [facility] Last Admin: 12/24/17 09:33 Dose: 1 unit Hydromorphone HCl (Dilaudid) 1 mg IVP Q4 PRN PRN Reason: Pain, moderate (4-7) Hydromorphone HCl (Dilaudid) 2 mg PO Q4 PRN PRN Reason: Pain, moderate (4-7) Last Admin: 12/22/17 22:00 Dose: 2 mg Ertapenem 1 gm/ Sodium (Chloride) 100 mls @ 100 mls/hr IVPB DAILY [facility] PRN Reason: Protocol Last Admin: 12/24/17 09:31 Dose: 100 mls/hr Lactulose (Enulose) 20 gm PO DAILY PRN PRN Reason: Constipation Last Admin: 12/23/17 21:45 Dose: 20 gm Morphine Sulfate (Morphine) 2 mg IVP Q2 PRN PRN Reason: Pain, severe (8-10) Last Admin: 12/21/17 07:57 Dose: 2 mg Nicotine (Nicoderm Cq) 1 patch TD DAILY [facility] Last Admin: 12/24/17 09:32 Dose: 1 patch Nifedipine (Procardia Xl) 60 mg PO DAILY [facility] Last Admin: 12/24/17 09:33 Dose: 60 mg Pantoprazole Sodium (Protonix Ec Tab) 40 mg PO DAILY [facility] Last Admin: 12/24/17 09:34 Dose: 40 mg Triamterene/HCTZ (Dyazide 25 Mg-37.5 Mg) 1 cap PO DAILY [facility] Last Admin: 12/24/17 09:31 Dose: 1 cap - Labs Labs: 12/20/17 06:00 12/20/17 06:00 - Constitutional Appears: No Acute Distress - Head Exam Head Exam: NORMAL INSPECTION - Eye Exam Eye Exam: Normal appearance - ENT Exam ENT Exam: Mucous Membranes Moist - Neck Exam Neck Exam: Normal Inspection - Respiratory Exam Respiratory Exam: Clear to Ausculation Bilateral, NORMAL BREATHING PATTERN - Cardiovascular Exam Cardiovascular Exam: REGULAR RHYTHM, +S1, +S2 - GI/Abdominal Exam GI & Abdominal Exam: Soft, Normal Bowel Sounds - Extremities Exam Extremities Exam: Normal Inspection - Back Exam Back Exam: muscle spasm - Neurological Exam Neurological Exam: Abnormal Gait, Alert, Awake, CN II-XII Intact (Antalgic gait due to pain radiating from back), Oriented x3, Reflexes Normal Assessment and Plan (1) Back pain Assessment & Plan: SEE HPI. Status: Acute (2) Pyelonephritis Assessment & Plan: SEE HPI - Needs 1 more day of ertepenem. Status: Acute (3) AIDS Status: Acute (4) Fibromyalgia Status: Acute (5) Vitamin D deficiency Status: Acute (6) Severe vaginal dysplasia, histologically confirmed Assessment & Plan: vaginal culture shows no growth. Status: Acute (7) GERD (gastroesophageal reflux disease) Assessment & Plan: continue Protonix for now. Status: Acute
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
[2017-12-24 16:06] VITALS: RESP 18
[2017-12-25] MEDS: NIFEdipine 60 mg ER Tab PO SCH (08:40)
[2017-12-25] MEDS: hydroCHLOROthiazide-Triamterene 25 mg-37.5 mg Cap UD PO SCH (08:40)
[2017-12-25] MEDS: GENVOYA PO SCH (08:46)
[2017-12-25] MEDS: Cholecalciferol 1,000 INTLU TAB PO SCH (08:46)
[2017-12-25] MEDS: Pantoprazole 40 mg EC Tab PO SCH (08:47)
[2017-12-25 08:55] VITALS: BP 105/69; PULSE 80; TEMP 98.2; O2SAT 92
== END 2017-12-25 12:36 | disposition home or self-care (01) | DRG 569 ==
LOC: H.ER 12:01 → H.ERHOLD 15:38 → H.MEDSURG1 18:05
PROVIDERS: ADMIT Internal Medicine; ATTEND Internal Medicine
DX: N12 Tubulo-interstitial nephritis, not specified as acute or chronic (principal); B20 Human immunodeficiency virus [HIV] disease; M79.7 Fibromyalgia; E55.9 Vitamin D deficiency, unspecified; Z88.1 Allergy status to other antibiotic agents; E86.0 Dehydration; K21.9 Gastro-esophageal reflux disease without esophagitis; F17.210 Nicotine dependence, cigarettes, uncomplicated; I10 Essential (primary) hypertension; N89.3 Dysplasia of vagina, unspecified; R25.1 Tremor, unspecified; M51.16 Intervertebral disc disorders with radiculopathy, lumbar region; Z87.442 Personal history of urinary calculi